=== PATIENT | male | born 2000 | race Caucasian/White ===

== ENCOUNTER → 2020-06-08 | Outpatient (CLI) | payer BC ==
--- NOTE | 2020-06-08 09:34 | Diagnostic Imaging Report ---
PROCEDURE: US Gallbladder. TECHNIQUE: Multiple Real-time grayscale images were obtained over the right upper quadrant in various projections. INDICATION: Abdominal pain with nausea and vomiting. FINDINGS: The liver is normal is size at 16.9 cm. The portal vein is patent and shows normal direction of flow. No discrete liver mass is identified. The gallbladder appears to contain small stones. No wall thickening or biliary ductal dilatation is seen. The pancreas is unremarkable. The aorta is nonaneurysmal. The IVC is patent. The right kidney is without calculus or hydronephrosis. There is no ascites. IMPRESSION: Cholelithiasis without evidence of acute cholecystitis. Dictated by: Dictated on workstation # [id number]
== END ==
LOC: RAD 08:00
PROVIDERS: ATTEND Surgery
DX: K80.20 Calculus of gallbladder without cholecystitis without obstruction (principal)
CPT/HCPCS: 76705

== ENCOUNTER 2020-06-15 05:31 | Outpatient (RCR) | payer BC ==
[~2020-06-15] VITALS: Ht 190 cm; Wt 93.1 kg
== END 2020-06-15 13:09 | disposition home or self-care (01) ==
LOC: PREOP 05:31
PROVIDERS: ATTEND Surgery
DX: Z01.812 Encounter for preprocedural laboratory examination (principal); K80.20 Calculus of gallbladder without cholecystitis without obstruction; Z53.9 Procedure and treatment not carried out, unspecified reason